=== PATIENT | female | born 1955 | race Caucasian/White ===

== ENCOUNTER → 2021-10-23 | Outpatient (CLI) | payer OTHER ==
[~2021-10-23] MED LIST: ALBUTEROL2.5 MG/3 M INH; ATENOLOL50 MG PO; AZITHROMYCIN250 MG PO; CEFDINIR300 MG PO; CLARITIN10 MG PO; CLONIDINE HCL0.2 MG PO; CYMBALTA30 MG PO; HYDROXYZINE HCL25 MG PO; LEVOTHYROXINE75 MCG PO; MECLIZINE HCL12.5 MG PO; MEDROL DOSEPAK 24 MG PO; NORVASC10 MG PO; PEPCID40 MG PO; PREDNISONE 20 M20 MG PO; PROMETHAZINE HC25 M1 PO; PROZAC40 MG PO; SILTUSSIN DM C473 ML PO; VITAMIN C500 M4 PO; VITAMIN D 40400 UNIT PO; XANAX0.5 MG PO; ZINC50 MG PO
== END ==
LOC: HEART 5 14:33
DX: J44.9 Chronic obstructive pulmonary disease, unspecified (principal)
CPT/HCPCS: 94060; 94729